=== PATIENT | female | born 1990 | race Hispanic/Latino ===

== ENCOUNTER 2016-10-28 04:19 | Emergency (ER) | payer OTHER ==
[~2016-10-28] VITALS: Ht 170.2 cm; Wt 77.1 kg
[2016-10-28 04:32] VITALS: BP 118/75
--- NOTE | 2016-10-28 04:43 | ED DYSPNEA/ASTHMA COMPLAINT ---
History of Present Illness General Chief Complaint: Wheezing/Asthma Stated Complaint: HERE W/FRIEND C/O DIFF BREATHING HX ASTHMA O2 97% Source: patient Exam Limitations: no limitations Vital Signs & Intake/Output Vital Signs & Intake/Output Vital Signs Date Time Temp Pulse Resp B/P Pulse O2 O2 Flow FiO2 Ox Delivery Rate 10/28 0448 99 10/28 0432 96.9 78 20 118/75 98 Room Air Triage Note: PT STATES SHE HAS A HISTORY OF ASTHMA AND SHE THINKS HER CATS IS WHAT INITIATED THIS ASTHMA ATTACK. PT DENIES TAKING ANY MEDICATION AT HOME AND STATES SHE CANNOT REMEMBER THE LAST TIME SHE HAD ANY ALBUTEROL. NO WHEEZING NOTED, PT STATES SHE IS EXPERIENCING SOB. 02 SAT 98% RA. Triage Nurses Notes Reviewed? yes : No Patient currently breastfeeds: No HPI: Patient presents for evaluation of an asthma attack that began this evening. Patient's thinks that it might be due to exposure to cats at her mother's home. She denies any associated fever or cold symptoms but does have a runny nose. Since she has not had an asthma attack for many years she has no medications currently. Patient's shortness of breath is described as mild but worse with exertion. Past History Travel History Traveled to [place] past 21 day No Medical History Any Pertinent Medical History? see below for history Respiratory: asthma Surgical History Surgical History: non-contributory Psychosocial History What is your primary language [place] Tobacco Use: Never used ETOH Use: denies use Illicit Drug Use: denies illicit drug use Family History Hx Contributory? No Review of Systems Review of Systems Constitutional: Reports: no symptoms. EENTM: Reports: see HPI. Respiratory: Reports: see HPI. Cardiovascular: Reports: no symptoms. GI: Reports: no symptoms. Genitourinary: Reports: no symptoms. Musculoskeletal: Reports: no symptoms. Skin: Reports: no symptoms. Neurological/Psychological: Reports: no symptoms. Hematologic/Endocrine: Reports: no symptoms. Immunologic/Allergic: Reports: no symptoms. All Other Systems: Reviewed and Negative Physical Exam Physical Exam Respiratory: SEE BELOW Comments: Gen.: Well-nourished, well-developed, no acute respiratory distress. Head: Normocephalic, atraumatic. Eyes: Normal inspection bilaterally Ears: Normal inspection bilaterally Nose: Normal inspection Throat/mouth : Moist mucosa Neck: Supple, full range of motion, no goiter Heart: Regular rate and rhythm, no murmurs rubs or gallops Lungs: Clear to auscultation bilaterally with normal air entry Chest: Nontender Back: Normal range of motion Abdomen: Soft, nontender, nondistended, normal bowel sounds Extremities: Normal range of motion grossly, equal radial pulses, no cyanosis clubbing or edema Neurologic: Cranial nerves grossly intact, speech is clear Skin: warm and dry Psychiatric: Calm, cooperative, no apparent delusions or hallucinations Core Measures ACS in differential dx? No Severe Sepsis Present: No Septic Shock Present: No Progress Differential Diagnosis: asthma, bronchitis, CHF, COPD, pneumonia Plan of Care: Current Medications Sig/Erickson Start time Last Medication Dose Stop Time Status Admin Albuterol Sulfate 3 ML ONCE ONE 10/28 444 UNVr (Proventil) 10/28 445 Ipratropium [place] 2.5 ML ONCE ONE 10/285 UNVr (Atrovent) 10/28 445 Initial ED EKG: none Comments: 10/28/2016 5:26:21 AM patient air entry has improved. There is no wheezes rales or rhonchi. Patient appears comfortable. Departure Departure Disposition: HOME OR SELF CARE Condition: Stable Clinical Impression Primary Impression: Asthma exacerbation Referrals: UNKNOWN (PCP/Family) Additional Instructions: Albuterol inhaler as prescribed. Follow-up with your primary care doctor on Saturday for reevaluation. Return if any concerns or sudden worsening. Thank you for choosing the [facility] for your care. It was a pleasure to serve you today. Eugene Del Rosario M.D. [facility] Departure Forms: Customer Survey General Discharge Information Critical Care Note Critical Care Note Critical Care Time: non-applicable
[2016-10-28] MEDS ORDERED: PROAIR HFA8.5 GM INH ×2 (05:32→05:33)
== END 2016-10-28 05:30 ==
LOC: ERH 04:19
DX: J45.901 Unspecified asthma with (acute) exacerbation (principal)
CPT/HCPCS: 1263; 1395